=== PATIENT | female | born 1975 | race Caucasian/White ===

== ENCOUNTER 2018-03-11 17:00 | Emergency (ER) | payer OTHER ==
[~2018-03-11] VITALS: Ht 162.6 cm; Wt 54.0 kg
[2018-03-11] MEDS ORDERED: IV NORMAL SALINE 1000ML BAG 1,000 ML IV ONE (17:30)
[2018-03-11 18:30] LABS: BASO % 0 % (0-3); EOS # 0.1 x10^3/uL (0.0-0.7); EOS % 1 % (0-3); HEMATOCRIT 43.8 % (36.0-47.0); HEMOGLOBIN 14.8 g/dL (12.0-15.5); LYMPH # 1.3 x10^3/uL (1.0-4.8); LYMPH % 14 % (24-48); MEAN CORPUSCULAR HEMOGLOBIN 33 pg (25-35); MEAN CORPUSCULAR HGB CONC 34 g/dL (31-37); MEAN CORPUSCULAR VOLUME 98 fL (79-100); MONO # 0.4 x10^3/uL (0.0-1.1); MONO % 5 % (0-9); NEUT # 7.6 x10^3uL (1.8-7.7); NEUT % 80 % (31-73); PLATELET COUNT 154 x10^3/uL (140-400); RED BLOOD COUNT 4.46 x10^6/uL (3.50-5.40); WHITE BLOOD COUNT 9.5 x10^3/uL (4.0-11.0)
[2018-03-11 18:39] LABS: CALCIUM 7.6 mg/dL (8.5-10.1); CREATININE 0.7 mg/dL (0.6-1.0); GFR 90.9; POTASSIUM 3.4 mmol/L (3.5-5.1)
--- NOTE | 2018-03-11 18:42 | RAD ---
PQRS Compliance statement: One or more of the following individualized dose reduction techniques were utilized for this examination: 1. Automated exposure control. 2. Adjustment of the mA and/or kV according to patient size. 3. Use of iterative reconstruction technique. Indication:SYNCOPE TECHNIQUE: CT head without IV contrast COMPARISON:None FINDINGS: No pathologic extra-axial or intra-axial fluid collection. The ventricles and basal cisterns are within normal limits. No acute intracranial bleed. No focal loss of maki-white differentiation. Orbits are within normal limits. No suspicious bony lesion. Visualized paranasal sinuses and mastoid air cells are clear. IMPRESSION: No acute intracranial process. If concern for acute ischemic stroke is high, please consider MRI brain. Electronically signed by: Earl Antonio DO (03/11/2018 6:38 PM) [facility]
[2018-03-11 18:45] LABS: ALBUMIN 3.3 g/dL (3.4-5.0); ALBUMIN/GLOBULIN RATIO 1.2 (1.0-1.7); MAGNESIUM 1.8 mg/dL (1.8-2.4); TOTAL BILIRUBIN 0.3 mg/dL (0.2-1.0)
[2018-03-11 18:56] LABS: CREATINE KINASE 45 U/L (26-192)
--- NOTE | 2018-03-11 19:05 | EKG ---
[facility] [address] [place] [address] Test Date: 2018-03-11 Test Time: 17:08:36 Pat Name: LYNETTE NAVARRETE Department: Room: Gender: F [employer]: : 1975 Requested By: DESEAN OLIVARES Order Number: [id number] Reading MD: Chris Leigh MD Measurements Intervals Mongo Rate: 52 P: 69 [place]: 198 QRS: 90 QRSD: 68 T: 91 QT: 450 QTc: 421 Interpretive Statements SINUS RHYTHM Electronically Signed On 03-12-2018 12:09:25 CDT by Chris Leigh MD
[2018-03-11 19:06] LABS: BILIRUBIN,URINE NEGATIVE (NEG); CLARITY,URINE CLEAR; COLOR,URINE YELLOW; NITRITE,URINE NEGATIVE (NEG); PROTEIN,URINE NEGATIVE (NEG-TRACE); UROBILINOGEN,URINE 0.2 mg/dL (0.2 mg/dL)
--- NOTE | 2018-03-11 19:10 | PHYS DOC ---
Past Medical History Past Medical History: Other Additional Past Medical Histor: CELIAC,IRON DEFICIENCY Past Surgical History: Other Additional Past Surgical Histo: ECTOPIC PREG,ULNAR NERVE TRANSPORTATION Alcohol Use: None Drug Use: None Adult General Chief Complaint Chief Complaint: SYNCOPE HPI HPI Patient is a 42 year old female with history of celiac disease, iron deficiency , who presents today to be evaluated for dizziness, hypotension and syncope. Patient was receiving iron transfusion when this stated she started feeling dizzy, she became hypotensive and passed out. Patient denies any chest pain, denies any fever cough or congestion, she states she is feeling dizzy. Review of Systems Review of Systems Constitutional: Denies fever or chills [] Eyes: Denies change in visual acuity, redness, or eye pain [] HENT: Denies nasal congestion or sore throat [] Respiratory: Denies cough or shortness of breath [] Cardiovascular: Reports hypotension GI: Denies abdominal pain, nausea, vomiting, bloody stools or diarrhea [] : Denies dysuria or hematuria [] Musculoskeletal: Denies back pain or joint pain [] Integument: Denies rash or skin lesions [] Neurologic: Reports dizziness. Reports syncope. Denies headache, focal weakness or sensory changes [] All other systems were reviewed and found to be within normal limits, except as documented in this note. Current Medications Current Medications Current Medications Medications (Trade) Dose Ordered Sig/Chris Start Time Stop Time Status Last Admin Dose Admin Sodium Chloride 1,000 ml @ 1,000 mls/hr 1X ONCE 03/11/18 17:30 03/11/18 18:29 DC 03/11/18 17:54 1,000 MLS/HR Allergies Allergies Allergies Coded Allergies Type Severity Reaction Last Updated Verified ferric carboxymaltose Allergy Intermediate 03/11/18 Yes gluten Allergy Unknown 03/11/18 Yes Physical Exam Physical Exam Constitutional: Well developed, well nourished, no acute distress, non-toxic appearance. [] HENT: Normocephalic, atraumatic, bilateral external ears normal, oropharynx moist, no oral exudates, nose normal. [] Eyes: PERRLA, EOMI, conjunctiva normal, no discharge. [] Neck: Normal range of motion, no tenderness, supple, no stridor. [] Cardiovascular:Heart rate regular rhythm, no murmur [] Lungs & Thorax: Bilateral breath sounds clear to auscultation [] Abdomen: Bowel sounds normal, soft, no tenderness, no masses, no pulsatile masses. [] Skin: Warm, dry, no erythema, no rash. [] Back: No tenderness, no CVA tenderness. [] Extremities: No tenderness, no cyanosis, no clubbing, ROM intact, no edema. [] Neurologic: Alert and oriented X 3, normal motor function, normal sensory function, no focal deficits noted. Cranial nerves II through XII intact Psychologic: Affect normal, judgement normal, mood normal. [] Current Patient Data Vital Signs Vital Signs Date Time Temp Pulse Resp B/P (MAP) Pulse Ox O2 Delivery O2 Flow Rate FiO2 03/11/18 17:00 97.8 50 16 88/51 (63) 96 Room Air 97.8 Lab Values Laboratory Tests Test 03/11/18 18:15 03/11/18 18:54 White Blood Count 9.5 x10^3/uL (4.0-11.0) Red Blood Count 4.46 x10^6/uL (3.50-5.40) Hemoglobin 14.8 g/dL (12.0-15.5) Hematocrit 43.8 % (36.0-47.0) Mean Corpuscular Volume 98 fL (79-100) Mean Corpuscular Hemoglobin 33 pg (25-35) Mean Corpuscular Hemoglobin Concent 34 g/dL (31-37) Red Cell Distribution Width 14.0 % (11.5-14.5) Platelet Count 154 x10^3/uL (140-400) Neutrophils (%) (Auto) 80 % (31-73) H Lymphocytes (%) (Auto) 14 % (24-48) L Monocytes (%) (Auto) 5 % (0-9) Eosinophils (%) (Auto) 1 % (0-3) Basophils (%) (Auto) 0 % (0-3) Neutrophils # (Auto) 7.6 x10^3uL (1.8-7.7) Lymphocytes # (Auto) 1.3 x10^3/uL (1.0-4.8) Monocytes # (Auto) 0.4 x10^3/uL (0.0-1.1) Eosinophils # (Auto) 0.1 x10^3/uL (0.0-0.7) Basophils # (Auto) 0.0 x10^3/uL (0.0-0.2) Sodium Level 137 mmol/L (136-145) Potassium Level 3.4 mmol/L (3.5-5.1) L Chloride Level 106 mmol/L (98-107) Carbon Dioxide Level 24 mmol/L (21-32) Anion Gap 7 (6-14) Blood Urea Nitrogen 6 mg/dL (7-20) L Creatinine 0.7 mg/dL (0.6-1.0) Estimated GFR (Cockcroft-Gault) 90.9 BUN/Creatinine Ratio 9 (6-20) Glucose Level 95 mg/dL (70-99) Calcium Level 7.6 mg/dL (8.5-10.1) L Magnesium Level 1.8 mg/dL (1.8-2.4) Iron Level 467 ug/dL (50-170) H Total Iron Binding Capacity 433 ug/dL (250-450) Iron Saturation 108 % (15-34) H Ferritin 84 ng/mL (8-252) Total Bilirubin 0.3 mg/dL (0.2-1.0) Aspartate Amino Transferase (AST) 14 U/L (15-37) L Alanine Aminotransferase (ALT) 16 U/L (14-59) Alkaline Phosphatase 40 U/L (46-116) L Creatine Kinase 45 U/L (26-192) Creatine Kinase MB (Mass) < 0.5 ng/mL (0.0-3.6) Creatine Kinase MB Relative Index % (0-4) Troponin I Quantitative < 0.017 ng/mL (0.000-0.055) [id number]-Type Natriuretic Peptide 123 pg/mL (0-124) Total Protein 6.0 g/dL (6.4-8.2) L Albumin 3.3 g/dL (3.4-5.0) L Albumin/Globulin Ratio 1.2 (1.0-1.7) Thyroid Stimulating Hormone (TSH) 2.334 uIU/mL (0.358-3.74) Urine Collection Type Void Urine Color Yellow Urine Clarity Clear Urine pH 6.0 Urine Specific Clear 1.010 Urine Protein Negative mg/dL (NEG-TRACE) Urine Glucose (UA) Negative mg/dL (NEG) Urine Ketones (Stick) Negative mg/dL (NEG) Urine Blood Small (NEG) Urine Nitrite Negative (NEG) Urine Bilirubin Negative (NEG) Urine Urobilinogen Dipstick 0.2 mg/dL (0.2 mg/dL) Urine Leukocyte Esterase Negative (NEG) Urine RBC Occ /HPF (0-2) Urine WBC Occ /HPF (0-4) Urine Squamous Epithelial Cells Few /LPF Urine Bacteria 0 /HPF (0-FEW) Urine Opiates Screen Neg (NEG) Urine Methadone Screen Neg (NEG) Urine Barbiturates Neg (NEG) Urine Phencyclidine Screen Neg (NEG) Urine Amphetamine/Methamphetamine Neg (NEG) Urine Benzodiazepines Screen Neg (NEG) Urine Cocaine Screen Neg (NEG) Urine Cannabinoids Screen Neg (NEG) Urine Ethyl Alcohol Neg (NEG) Laboratory Tests 03/11/18 18:15 Laboratory Tests 03/11/18 18:15 EKG EKG [] Radiology/Procedures Radiology/Procedures [] Course & Med Decision Making Course & Med Decision Making Pertinent Labs and Imaging studies reviewed. (See chart for details) This is a 42-year-old female patient presenting to the ED today from the [facility] where she was receiving iron transmission patient presents today for dizziness hypotension and syncope. Blood pressure and arrival to the ED is 88/51 with a heart rate of 50. Patient was refusing lab work to be drawn. She states she does not have good experience with labs. I had to go and talk to her for wide. She was given IV fluids. Labs are negative for any acute findings, chest x-ray and CT of the head is negative. Patient feeling better after IV fluids. Blood pressure 102/52 with a heart rate of 60s. She will be discharged back home. Dragon Disclaimer Dragon Disclaimer This electronic medical record was generated, in whole or in part, using a voice recognition dictation system. Departure Departure Impression: Primary Impression: Dizziness Additional Impressions: Hypotension Syncope Disposition: HOME, SELF-CARE Condition: STABLE Referrals: UNKNOWN PCP NAME (PCP) follow up in one week Patient Instructions: Dizziness, [id number], Hypotension, Syncope, Easy-to- Read Additional Instructions: You were evaluated in the emergency room for syncope, dizziness and hypotension , please continue following up with your own doctor. Push fluids. Change positions slowly. Come back to the emergency room at any point symptoms worsen. Problem Qualifiers Additional Impressions: Hypotension Hypotension type: unspecified hypotension type Qualified Codes: I95.9 - Hypotension, unspecified Syncope Syncope type: unspecified Qualified Codes: R55 - Syncope and collapse DESEAN OLIVARES APRN Mar 11, 2018 19:10
[2018-03-11 19:15] LABS: BARBITURATES NEG (NEG); BENZODIAZEPINES NEG (NEG); CANNABINOIDS NEG (NEG); COCAINE NEG (NEG); METHADONE NEG (NEG); OPIATES NEG (NEG); PHENCYCLIDINE NEG (NEG)
[2018-03-11 19:19] LABS: BACTERIA,URINE 0 /HPF (0-FEW); RBC,URINE OCC /HPF (0-2); SQUAMOUS EPITHELIAL CELL,UR FEW /LPF; WBC,URINE OCC /HPF (0-4)
[2018-03-11 19:23] LABS: AMPHETAMINE/METHAMPHETAMINE NEG (NEG)
[2018-03-11 20:05] VITALS: BP 88/47
--- NOTE | 2018-03-11 20:22 | RAD ---
PORTABLE CHEST 1V dated 03/11/2018 6:33 PM. Comparison: None. Clinical Indication: C/O PAIN TO LT 5TH METATARSAL SINCE SAT. NO KNOWN INJURY, SYNCOPAL EVENT. Findings: Single upright portable exam performed. Heart and mediastinal contours are within normal limits. Lungs are clear without focal consolidation. Vascular interstitium within normal limits. No pleural effusion or pneumothorax. Impression: Negative portable chest. Electronically signed by: Dmitriy Leiva MD (03/11/2018 8:18 PM) [facility]
== END 2018-03-11 20:18 | disposition home or self-care (01) ==
LOC: ER 17:02
DX: R55 Syncope and collapse (principal); I95.9 Hypotension, unspecified; K90.0 Celiac disease; E61.1 Iron deficiency; Z88.8 Allergy status to other drugs, medicaments and biological substances
CPT/HCPCS: 36415; 70450; 71045; 80053; 80307; 81001; 82553; 82728; 83540; 83550; 83735; 83880; 84443; 84484; 85025; 93005; 96360; 99285; J7030; G0479